=== PATIENT | male | born 1980 | race Caucasian/White ===

== ENCOUNTER 2024-09-26 08:16 | Day surgery (SDC) | payer BC ==
[~2024-09-26 08:16] MED LIST: Sodium Chloride 0.9% 10 ML Syringe FLUSH PRN
[2024-09-26] MEDS ORDERED: Propofol 200 MG/20 ML SDV IV ONE (08:17)
[2024-09-26] MEDS ORDERED: Lidocaine 1% PF 2 ML SDV INJECT ONE (08:17)
[2024-09-26] MEDS: Lactated Ringers 1,000 ML IV SCH (08:59)
== END 2024-09-26 10:44 | disposition home or self-care (01) ==
LOC: FB.SDS 08:16
PROVIDERS: ATTEND Surgery
DX: Z12.11 Encounter for screening for malignant neoplasm of colon (principal); K57.30 Diverticulosis of large intestine without perforation or abscess without bleeding; Z80.0 Family history of malignant neoplasm of digestive organs
CPT/HCPCS: 00812; 45378; A9270; J2003; J2704; J7120